=== PATIENT | male | born 1985 | race Caucasian/White ===

== ENCOUNTER 2021-01-28 00:11 | Emergency (ER) | payer OTHER, SELFPAY ==
--- NOTE | ~2021-01-28 | XR_ITS ---
EXAMINATION: XR chest 1V 01/28/2021 00:55 INDICATION: Shortness of breath and chest palpitations PROCEDURE: AP view of the chest COMPARISON: 09/11/2018 FINDINGS: The lungs are clear. The cardiomediastinal silhouette is within normal limits. There are no pleural effusions. There is no pneumothorax suspected. IMPRESSION: 1: NO ACUTE CARDIOPULMONARY DISEASE. Reviewed, dictated and finalized at location A.
--- NOTE | ~2021-01-28 | CT_ITS ---
EXAMINATION: CT BRAIN W/O DATE: 01/28/2021 00:50 INDICATION: Numbness and headache. Dizziness. TECHNIQUE: Computed tomography (CT) of the head was performed without intravenous contrast. The dose- length product was 681.00 mGy-cm. The mA was adjusted according to patient size. Iterative reconstruc tion technique was employed. COMPARISON: No prior studies for comparison. FINDINGS: Normal brain parenchymal volume for age. Normal reddy-white differentiation. No acute intrac ranial hemorrhage, infarction, mass or mass effect. No ventriculomegaly or midline shift. Midline sagittal images demonstrate a normal corpus callosum, c raniovertebral junction and sella turcica. Basilar cisterns are patent. There is mucosal thickening of the maxillary sinuses. There is mucous retention cyst right maxillary sinus. Mastoids are pneumatized. No depressed skull fracture. IMPRESSION: 1. No acute intracranial abnormality. 2: Mild sinus disease. Reviewed, dictated and finalized at location A.
[2021-01-28 00:13] VITALS: BP 147/100; PULSE 106; RESP 18; TEMP 36.6; O2SAT 95
--- NOTE | 2021-01-28 00:32 | ECG_ITS ---
Measurements Intervals [place] Rate: 91 P: 32 NH: 161 QRS: 6 QRSD: 88 T: 54 QT: 328 QTc: 404 Interpretive Statements SINUS RHYTHM POOR R WAVE PROGRESSION, CONSIDER ANTERIOR INFARCT BASELINE ARTIFACT- I, III, AVL ABNORMAL ECG Electronically Signed On 01-28-2021 7:34:32 CDT by Cristobal Paulino D.O.
[2021-01-28] MEDS: SODIUM CHLORIDE 0.9% IV 1,000 ML 999 ML IV CONT (00:42)
[2021-01-28] MEDS: diphenhydrAMINE HCl INJ 50 MG/ML VIAL IV PUSH (00:42)
[2021-01-28 01:06] LABS: Basophils Absolute Auto 0.1 K/mm3 (0.0-0.1); Basophils Percent Auto 0.7 % (0.2-1.2); Eosinophils Absolute Auto 0.2 K/mm3 (0-0.3); Eosinophils Percent Auto 1.4 % (0-4.4); Hematocrit 43.4 % (42.0-52.0); Hemoglobin 14.3 g/dL (14.0-18.0); Immature Granulocyte Absolute 0.08 K/mm3 (0.00-0.031); Immature Granulocyte Percent A 0.6 % (0-0.5); Lymphocytes Percent Auto 13.1 % (18.3-44.2); Mean Corpuscular HGB Conc 32.9 g/dl (32-36); Mean Corpuscular Hemoglobin 29.9 pg (26-34); Mean Corpuscular Volume 90.6 fl (80-100); Mean Platelet Volume 10.6 fl (7.4-10.4); Monocytes Absolute Auto 0.9 K/mm3 (0.1-0.6); Monocytes Percent Auto 6.1 % (2.6-8.5); Neutrophils Absolute Auto 11.3 K/mm3 (1.3-6.7); Neutrophils Percent Auto 78.1 % (45.5-73.1); Platelet Count Result 265 k/mm3 (150-375); Red Blood Count 4.79 M/mm3 (4.6-6.20); Red Cell Distribution Width 13.4 % (11.5-14.5); White Blood Count 14.5 K/mm3 (4.5-10.0)
[2021-01-28 01:17] LABS: INR 0.9; Partial Thromboplastin Time 29.4 SECONDS (22.3-36.8); Prothrombin Time 12.7 Seconds (11.1-14.7)
[2021-01-28 01:20] LABS: Alanine Aminotransferase 40 U/L (4-50); Albumin Level 4.1 g/dL (3.5-5.1); Alkaline Phosphatase 84 U/L (38-126); Anion Gap 4 mmol/L (8-16); Aspartate Amino Transferase 35 U/L (17-59); Bilirubin,Total 0.7 mg/dL (0.2-1.3); Blood Urea Nitrogen 16 mg/dL (9-20); Calcium 9.3 mg/dL (8.4-10.2); Carbon Dioxide 30 mmol/L (22-30); Chloride 102 mmol/L (98-107); Estimated CRCL calculation 148 ml/min; Estimated Glomerular Filt Rate > 60; Glucose 107 mg/dL (75-110); Magnesium 1.9 mg/dL (1.6-2.3); Potassium 4.2 mmol/L (3.4-5.0); Sodium 136 mmol/L (137-145)
--- NOTE | 2021-01-28 01:28 | ED.GENADULT ---
HPI - General Adult General Chief complaint: Neuro Symptoms/Deficit Stated complaint: over heated, numbness top of head/neck/back Time Seen by Provider: 01/28/21 00:24 History of Present Illness HPI narrative: Patient is a 35-year-old gentleman who presents the emergency department with chief complaint of numbness on his head and flushed feeling over his body. Patient reports that he started feeling some palpitations felt very hot had a headache that developed and felt some tingling on his head and down his left arm. Patient states that he decided to come to the emergency department for evaluation reports that the symptoms have improved somewhat but he still has a severe headache. Patient reports no focal neurological deficits. Related Data Home Medications Medication Instructions Recorded Confirmed No Home Medications 01/28/21 Allergies Allergy/AdvReac Type Severity Reaction Status Date / Time cefaclor Allergy Unknown Rash Verified 01/28/21 00:20 Review of Systems Review of Systems: Narrative: A 10 system review of systems was completed on the patient and is negative except for what is stated in the HPI. Nursing and ancillary documentation was reviewed. [facility] Social History Social History Gender identity (if verbalized by the patient): Male Sexual Orientation (if Verbalized by the Patient): Straight or Heterosexual Comments Patient denies past medical history Social history the patient reportedly smokes cigarettes Exam Narrative: Exam Narrative: GENERAL: Well-appearing, well-nourished, and in no acute distress. HEAD: Normocephalic, atraumatic. EYES: PERRLA and EOMI. ENT: Nares clear, no rhinorrhea or epistaxis. Mucous membranes moist. NECK: Supple. CHEST: Clear to auscultation. No respiratory distress. HEART: Regular rate and rhythm. No murmur heard. Normal peripheral pulses. ABDOMEN: Soft, nontender, nondistended, normal active bowel sounds. EXTREMITIES: Normal range of motion. No edema. SKIN: Warm, dry, no rash. NEURO: No focal deficits. Alert and oriented x3. PSYCH: Normal mood and affect. Course Course Emergency Course: EKG shows sinus rhythm rate of [address] elevation or ST depression Patient received hydration antiemetics and Benadryl the patient is feeling much better at this time Vital Signs Vital signs: Vital Signs Temperature 36.6 C 01/28/21 00:13 Pulse Rate 106 H 01/28/21 00:13 Respiratory Rate 18 01/28/21 00:13 Blood Pressure 147/100 H 01/28/21 00:13 Pulse Oximetry 95 01/28/21 00:13 Temperature 36.6 C 01/28/21 00:13 Pulse Rate 106 H 01/28/21 00:13 Respiratory Rate 18 01/28/21 00:13 Blood Pressure 147/100 H 01/28/21 00:13 Pulse Oximetry 95 01/28/21 00:13 Medical Decision Making Vital Signs Vital Signs: Vital Signs Temperature 36.6 C 01/28/21 00:13 Pulse Rate 106 H 01/28/21 00:13 Respiratory Rate 18 01/28/21 00:13 Blood Pressure 147/100 H 01/28/21 00:13 Pulse Oximetry 95 01/28/21 00:13 Temperature 36.6 C 01/28/21 00:13 Pulse Rate 106 H 01/28/21 00:13 Respiratory Rate 18 01/28/21 00:13 Blood Pressure 147/100 H 01/28/21 00:13 Pulse Oximetry 95 01/28/21 00:13 Lab Data Result diagrams: 01/28/21 00:44 01/28/21 00:43 Labs: Lab Results 01/28/21 01/28/21 01/28/21 Range/Units 00:43 00:43 00:44 WBC 14.5 H (4.5-10.0) K/mm3 RBC 4.79 (4.6-6.20) M/mm3 Hgb 14.3 (14.0-18.0) g/dL Hct 43.4 (42.0-52.0) % MCV 90.6 (80-100) fl MCH 29.9 (26-34) pg MCHC 32.9 (32-36) g/dl RDW 13.4 (11.5-14.5) % Plt Count 265 (150-375) k/mm3 MPV 10.6 H (7.4-10.4) fl Immature Gran % (Auto) 0.6 H (0-0.5) % Neut % (Auto) 78.1 H (45.5-73.1) % Lymph % (Auto) 13.1 L (18.3-44.2) % [place] % (Auto) 6.1 (2.6-8.5) % Eos % (Auto) 1.4 (0-4.4) % Baso % (Auto) 0.7 (0.2-1.2) % Lymph # (Auto) 1.90 (0.9-3.2) K/mm3 [place] # (Auto)
[2021-01-28 01:32] LABS: Troponin I < 0.012 ng/mL (0.000-0.034)
[2021-01-28 02:24] VITALS: BP 138/96; PULSE 84; RESP 16; TEMP 36.7; O2SAT 98
== END 2021-01-28 02:25 | disposition home or self-care (01) ==
PROVIDERS: Emergency Provider Emergency Medicine; PCP Nurse Practitioner Gerontology
DX: R51.9 Headache, unspecified (principal)
CPT/HCPCS: 36415; 70450; 71045; 80053; 83735; 84484; 85025; 85610; 85730; 93005; 96361; 96374; 99284; J1200; J7030

== ENCOUNTER 2022-02-25 08:07 | Emergency (ER) | payer OTHER, SELFPAY ==
--- NOTE | ~2022-02-25 | XR_ITS ---
EXAMINATION: XR knee RT 3V DATE: 02/25/2022 08:37 INDICATION: Right knee pain. Fall. TECHNIQUE: 3 views of right knee were obtained. COMPARISON: Right knee radiographs 02/25/2018 FINDINGS: There is lateral subluxation of patella. No fracture. There is mild tricompartmental osteoa rthritis. No knee joint effusion. IMPRESSION: 1. Mild right knee osteoarthritis. Reviewed, dictated and finalized at location B.
[2022-02-25 08:12] VITALS: BP 155/98; PULSE 91; RESP 18; TEMP 36.9; O2SAT 99
--- NOTE | 2022-02-25 08:59 | ED.GENADULT ---
HPI - General Adult General Chief complaint: Extremity Injury, Lower <SCOTT Bateman Last Filed: 02/25/22 14:50> Stated complaint: right knee injury <SCOTT Bateman Last Filed: 02/25/22 14:50> Time Seen by Provider: 02/25/22 08:56 <SCOTT Bateman Last Filed: 02/25/22 14:50> Source: patient <SCOTT Bateman Last Filed: 02/25/22 14:50> Mode of arrival: ambulatory <SOCTT Bateman Last Filed: 02/25/22 14:50> Limitations: no limitations <SCOTT Bateman Filed: 02/25/22 14:50> History of Present Illness HPI narrative: Patient is a 36 y/o male who presents to the ED with c/o R knee pain. Patient reports he fell around 730 am this morning. He states he slipped on water and fell with his R knee flexed behind him with his weight landing on his RLE. He complains of pain to his right knee since a fall, worst medially, and limited range of motion due to pain. He has been able to ambulate since the fall, but has been 'wobbling' and putting most of his weight on his LLE. Patient reports a history of R knee patellar dislocation in 2018 at which point he also sustained injury to his medial meniscus. He states he fell in a similar way at that time. He did not have surgery. He does not follow with an environmental specialist. No ankle pain, hip pain. No numbness, tingling, weakness, prodromal symptoms prior to the fall. <SCOTT Bateman Last Filed: 02/25/22 14:50> Related Data Home medications: Home Medications Medication Instructions Recorded Confirmed clonazepam 0.5 mg tablet 0.5 mg PO DAILY 03/09/21 03/09/21 escitalopram oxalate 10 mg tablet 10 mg PO DAILY 03/09/21 03/09/21 <SCOTT Bateman Last Filed: 02/25/22 14:50> Allergies/adverse reactions: Allergies Allergy/AdvReac Type Severity Reaction Status Date / Time cefaclor Allergy Unknown Rash Verified 03/09/21 13:01 <Lydia Farley PA-C - Last Filed: 02/25/22 14:50> Review of Systems Review of Systems: CONSTITUTIONAL: Denies fever. EYES: Denies visual changes. CARDIOVASCULAR: Denies chest pain. RESPIRATORY: Denies dyspnea. GASTROINTESTINAL: Denies abdominal pain, nausea, vomiting. MUSCULOSKELETAL: Reports R knee pain. Denies back pain, R hip/ankle pain. NEUROLOGIC: Denies headache, dizziness, lightheadedness, numbness, or weakness. <Lydia Farley PA-C - Last Filed: 02/25/22 14:50> All systems reviewed & are unremarkable except as noted in HPI and below <Lydia Farley PA-C - Last Filed: 02/25/22 14:50> PMFSH Past Medical History Medical History: Medical History Anxiety Frequent headaches <Lydia Farley PA-C - Last Filed: 02/25/22 14:50> Surgical History Surgical History: Surgical History (Updated 02/25/22 @ 14:40 by Lydia Farley PA-C) No pertinent past surgical history <Lydia Farley PA-C - Last Filed: 02/25/22 14:50> Family History Family History: Family History (Updated 03/09/21 @ 13:04 by Jaylyn Johnson [facility]) Unknown Diabetes mellitus History of stroke History of alcoholism <Lydia Farley PA-C - Last Filed: 02/25/22 14:50> Social History Social History: Social History Smoking packs per day: 0.5 Smoking cigarettes per day: 10.0 Smoking status: Current every day smoker Alcohol intake: never Gender identity (if verbalized by the patient): Male Sexual Orientation (if Verbalized by the Patient): Straight or Heterosexual <Lydia Farley PA-C - Last Filed: 02/25/22 14:50> Exam Narrative: GENERAL: Well appearing, obese, non-toxic, in no acute distress. HEAD: Normocephalic, atraumatic. NECK: Supple. No adenopathy, no masses. RESPIRATORY: Airway patent, respirations nonlabored. Clear to auscultation bilaterally, no rales, rhonchi, wheezing. CARDIOVASCULAR: Regular rate and rhythm
[2022-02-25] MEDS: KETOROLAC (*BKC) 60 MG/2 ML VIAL IM (09:31)
[2022-02-25 09:34] VITALS: BP 162/100; PULSE 70; RESP 15; O2SAT 100
[2022-02-25 10:10] VITALS: BP 142/85; PULSE 70; RESP 18; O2SAT 98
--- NOTE | 2022-02-25 10:30 | PC.NURSE ---
0918 Dr Burke eckert per Lydia Farley. He returned call at [phone]. [place]
== END 2022-02-25 10:15 | disposition home or self-care (01) ==
PROVIDERS: Emergency Provider Emergency Medicine; PCP Family Medicine
DX: S86.911A Strain of unspecified muscle(s) and tendon(s) at lower leg level, right leg, initial encounter (principal); S83.011A Lateral subluxation of right patella, initial encounter; F41.9 Anxiety disorder, unspecified; F17.210 Nicotine dependence, cigarettes, uncomplicated; M17.11 Unilateral primary osteoarthritis, right knee; W01.0XXA Fall on same level from slipping, tripping and stumbling without subsequent striking against object, initial encounter
CPT/HCPCS: 73562; 96372; 99283; J1885

== ENCOUNTER 2022-03-07 12:11 | Outpatient (CLI) | payer OTHER, SELFPAY ==
--- NOTE | ~2022-03-07 | CT_ITS ---
EXAMINATION: CT knee RT wo con DATE: 03/07/2022 12:48 INDICATION: Right knee osteoarthritis. TECHNIQUE: Computed tomography (CT) of the right knee was performed without intravenous contrast. Aut omated exposure control and iterative reconstruction technique were employed. The dose-length product was 403.43 mGy-cm. COMPARISON: Right knee radiographs 02/25/2022 FINDINGS: There is lateral subluxation of patella. No fracture. There is mild osteoarthritis of media l and lateral compartments and moderate osteoarthritis of patellofemoral compartment. There is a smal l knee joint effusion. There is a small Aparicio's cyst. IMPRESSION: 1. Moderate right knee osteoarthritis. 2. Small right knee joint effusion. 3. Small Aparicio's cyst. Reviewed, dictated and finalized at location B.
== END 2022-03-07 12:12 | disposition home or self-care (01) ==
PROVIDERS: PCP Family Medicine; Visit Provider Nurse Practitioner Adult Health
DX: M17.11 Unilateral primary osteoarthritis, right knee (principal); M25.461 Effusion, right knee; M71.21 Synovial cyst of popliteal space [Baker], right knee
CPT/HCPCS: 73700

== ENCOUNTER 2023-03-01 15:43 | Emergency (ER) | payer OTHER, SELFPAY ==
--- NOTE | 2023-03-01 15:48 | ED.URI ---
HPI - URI/Sore Throat General Chief Complaint: Upper Respiratory Infection Stated Complaint: Sore Throat,Congestion,Headache Time Seen by Provider: 03/01/23 15:48 Source: patient Mode of arrival: ambulatory Limitations: no limitations History of Present Illness HPI Narrative: patient is a 37-year-old male who presents with 3 days of sore throat, congestion, headache and ear pain. Patient also reports fever did not take Temperature. States he had diarrhea half the day yesterday. patient has been taking Tylenol and Mucinex with little to no relief. Patient denies any cough, shortness of breath, nausea, vomiting. Denies any sick contacts Related Data Home Medications Medication Instructions Recorded Confirmed clonazepam 0.5 mg tablet 0.5 mg PO DAILY 03/09/21 03/01/23 escitalopram oxalate 10 mg tablet 20 mg PO DAILY 03/09/21 03/01/23 Allergies Allergy/AdvReac Type Severity Reaction Status Date / Time cefaclor AdvReac Mild Rash Verified 03/01/23 16:00 Review of Systems Review of Systems: All systems reviewed & are unremarkable except as noted in HPI and below Constitutional: Constitutional: Denies chills, Denies fever(s), Denies malaise and Denies weakness Eyes: Eyes: Denies change in vision, Denies eye discharge and Denies irritation ENT: Reports otalgia, Reports headache(s), Reports nasal congestion, Denies nasal discharge, Denies sinus pain and Reports sore throat Cardiovascular: Cardiovascular: Denies chest pain, Denies edema, Denies palpitations and Denies dyspnea Respiratory: Respiratory: Denies cough and Denies dyspnea Gastrointestinal: Gastrointestinal: Denies abdominal pain, Denies diarrhea, Denies nausea and Denies vomiting Genitourinary: Genitourinary: Denies hematuria, Reports dysuria, Denies flank pain and Reports urinary frequency Musculoskeletal: Musculoskeletal: Denies back pain and Denies numbness Integumentary/Breasts: Skin/Breast: Denies pruritus and Denies rash Neurologic: Denies headache(s), Denies numbness and Denies weakness Psychiatric: Psychiatric: Reports no additional psychiatric complaints Endocrine: Endocrine: Denies palpitations Allergic/Immunologic: Allergic/Immunologic: Denies itchy eyes PMFSH Past Medical History Medical History (Updated 03/01/23 @ 16:09 by Perri N. Cosmas, ACCOUNT MANAGER [employer]IEF) Anxiety Frequent headaches Surgical History Surgical History (Updated 02/25/22 @ 14:40 by Lydia Oakes PA-C) No pertinent past surgical history Family History Family History (Updated 03/09/21 @ 13:04 by Jaylyn Johnson CMA) Unknown Diabetes mellitus History of stroke History of alcoholism Social History Social History Smoking packs per day: 0.5 Smoking cigarettes per day: 10.0 Smoking status: Current every day smoker Alcohol intake: never Gender identity (if verbalized by the patient): Male Sexual Orientation (if Verbalized by the Patient): Straight or Heterosexual Comments At time of signature, agree with nursing past medical, surgical, social and family history. There is no relevant family history pertinent to the presenting complaint. Exam Const: General: cooperative, healthy appearing, comfortable, no acute distress and well nourished Nutritional Appearance: well nourished Orientation/consciousness: patient oriented x3 Limitations: no limitations HENMT: Head: normocephalic and atraumatic Ears: hearing grossly normal bilaterally, external ears normal and TM's normal bilaterally Face/Nose/Sinus: Normal external nose present, Normal nares present, Normal nasal mucous membranes and turbinates present, normal facial exam and sinuses nontender Face and sinus: normal facial exam Mouth: Yes Normal oral and palatal mucosa present, Yes lip normal, Yes tongue normal, Yes Normal salivary glands and ducts present, Yes oropharynx normal and Yes moist mucous membranes Teeth and gingiva: dentitio
[2023-03-01 15:52] VITALS: BP 127/91; PULSE 68; RESP 20; TEMP 36; O2SAT 97
== END 2023-03-01 16:11 | disposition home or self-care (01) ==
PROVIDERS: Emergency Provider Nurse Practitioner Family; PCP Family Medicine
DX: J03.90 Acute tonsillitis, unspecified (principal); F17.210 Nicotine dependence, cigarettes, uncomplicated; F41.9 Anxiety disorder, unspecified
CPT/HCPCS: 87081; 87880; 99213; G0463

== ENCOUNTER 2024-05-08 12:15 | Outpatient (CLI) | payer OTHER, SELFPAY ==
--- NOTE | ~2024-05-08 | XR_ITS ---
3 VIEWS LUMBAR SPINE Ordering provider: [address], [employer]ER History: . Rt leg pain, LOW BACK AND NUMBNESS AND TINGLING . Comparison: None. FINDINGS: VERTEBRAL BODIES: No visible fracture or subluxation. Lumbarization of S1. DISK SPACES: Narrowing of the disc S1-S2 and L1-L2. SOFT TISSUES: Normal. IMPRESSION: No acute osseous abnormality lumbar spine. Multilevel degenerative disc disease. Reviewed, dictated and finalized at location A.
--- NOTE | ~2024-05-08 | XR_ITS ---
XR sacrum coccyx min 2V Ordering provider: [address], HEALTH ASSISTANT History: . Rt leg pain, NUMBNESS, TINGLING PAIN LOW BACK . Comparison: None. FINDINGS: BONES: No acute fracture or dislocation. JOINTS: The sacroiliac joint spaces are normal. SOFT TISSUES: Normal. IMPRESSION: No acute osseous abnormality sacrum. Reviewed, dictated and finalized at location A.
== END 2024-05-08 12:16 | disposition home or self-care (01) ==
PROVIDERS: PCP Family Medicine; Visit Provider Registered Nurse
DX: M79.661 Pain in right lower leg (principal); M54.50 Low back pain, unspecified; M51.36 Other intervertebral disc degeneration, lumbar region
CPT/HCPCS: 72100; 72220

== ENCOUNTER 2024-09-21 09:39 | Emergency (ER) | payer OTHER, SELFPAY ==
--- NOTE | 2024-09-21 09:44 | ED.GENADULT ---
HPI - General Adult General Chief complaint: Upper Respiratory Infection Stated complaint: fever Time Seen by Provider: 09/21/24 09:42 Source: patient Mode of arrival: ambulatory Limitations: no limitations History of Present Illness HPI narrative: 38-year-old male patient presents to the [facility] with complaints of a fever, body aches, chills, coughing and just overall not feeling well for the past 2 days. Patient states he has been taking ibuprofen and Tylenol for symptoms. Last took Tylenol about an hour prior to arrival. Patient states he has got some chest pain and shortness of breath with coughing. Some abdominal tenderness some body aches with coughing as well. Related Data Home Medications Medication Instructions Recorded Confirmed clonazepam 0.5 mg tablet 1 mg PO DAILY 03/09/21 09/21/24 escitalopram oxalate 10 mg tablet 20 mg PO DAILY 03/09/21 09/21/24 testosterone cypionate 200 mg/mL 0.5 mg subcut 2XW 09/21/24 09/21/24 intramuscular oil Allergies Allergy/AdvReac Type Severity Reaction Status Date / Time cefaclor AdvReac Mild Rash Verified 09/21/24 09:41 Review of Systems Review of Systems: CONSTITUTIONAL: Positive fever, body aches and chills, positive sweats. EYES: Denies visual changes, redness, or discharge. ENT: Denies rhinorrhea, congestion, sore throat, or otalgia. CARDIOVASCULAR: positive with coughing chest pain, denies palpitations, or edema. RESPIRATORY: positive cough or dyspnea. GASTROINTESTINAL: Denies abdominal pain, nausea, vomiting, or diarrhea. GENITOURINARY: Denies dysuria or hematuria. SKIN: Denies rash or itching. MUSCULOSKELETAL: Denies back pain, joint pain, or myalgia. NEUROLOGIC: Denies headache, numbness, or weakness. PSYCHIATRIC: Denies anxiety or depression. [facility] Past Medical History Medical History Anxiety Frequent headaches Surgical History Surgical History No pertinent past surgical history Family History Family History Unknown Diabetes mellitus History of stroke History of alcoholism Social History Social History Smoking packs per day: 0.5 Smoking cigarettes per day: 10.0 Smoking status: Current every day smoker Alcohol intake: never Gender identity (if verbalized by the patient): Male Sexual Orientation (if Verbalized by the Patient): Straight or Heterosexual Comments At the time of my signature I agree with nursing past medical history, surgical, social, and family history. There is no relevant family history pertinent to the presenting complaint. Exam Narrative: GENERAL: Well-appearing, well-nourished, and in no acute distress. HEAD: Normocephalic, atraumatic. EYES: PERRLA and EOMI. ENT: Nares with erythema edema noted bilaterally, clear rhinorrhea , no epistaxis. Mucous membranes moist. posterior pharynx no erythema, tonsillar enlargement, exudates or lesions. Bilateral TMs are clear no erythema or foreign bodies the canal. NECK: Supple. No lymphadenopathy CHEST: Patient has wheezing throughout the lungs on auscultation. No respiratory distress. HEART: Regular rate and rhythm. No murmur heard. Normal peripheral pulses. ABDOMEN: Soft, nontender, nondistended, normal active bowel sounds. EXTREMITIES: Normal range of motion. No edema. SKIN: Warm, dry, no rash. NEURO: No focal deficits. Alert and oriented x3. Course Course Level of Care: Express Care Visit Vital Signs Vital signs: Vital Signs Temperature 36.2 C L 09/21/24 09:50 Respiratory Rate 20 09/21/24 09:50 Blood Pressure 116/77 09/21/24 09:50 Pulse Oximetry 95 09/21/24 09:50 Oxygen Delivery Room Air 09/21/24 09:50 Temperature 36.2 C L 09/21/24 09:50 Respiratory Rate 20 09/21/24 09:50 Blood Pressure 116/77 09/21/24 09:50 Pulse Oximetry 95 09/21/24 09:50 Oxygen Delivery Room Air 09/21/24 09:50 vital signs reviewed. Medical Decision Making MDM Narrative Medical decision making narrative: discussed with patient he is negative today for COVID and influenza as per the rapid test. Discussed with patient he does have a virus and will not need to let it run its course. Discussed with patient that due to his wheezing and will discharge him home with some oral steroids and an albuterol inhaler along with some Tessalon Perles to help with the coughing. Discussed with patient if the fever lasts longer than 5 days or his symptoms worsen he would need to go the ER for further evaluation treatment Differential Diagnosis Differential Diagnosis: Differential diagnosis: Allergic rhinitis, chronic sinusitis, tonsillitis, acute sinusitis, infectious mononucleosis, seasonal influenza, pertussis, diphtheria, meningococcal disease, viral syndrome, viral bronchitis, RSV, COVID-19 Vital Signs Vital Signs: Vital Signs Temperature 36.2 C L 09/21/24 09:50 Respiratory Rate 20 09/21/24 09:50 Blood Pressure 116/77 09/21/24 09:50 Pulse Oximetry 95 09/21/24 09:50 Oxygen Delivery Room Air 09/21/24 09:50 Temperature 36.2 C L 09/21/24 09:50 Respiratory Rate 20 09/21/24 09:50 Blood Pressure 116/77 09/21/24 09:50 Pulse Oximetry 95 09/21/24 09:50 Oxygen Delivery Room Air 09/21/24 09:50 Critical Care Time Critical Care Time Critical Care Time: No Discharge Plan Discharge Clinical Impression: Viral URI with cough Patient Disposition: Home, Self-Care Condition: Stable Instructions: Antibiotic Form, Upper Respiratory Infection (ED), Viral Syndrome (ED) Additional Instructions: Viral illness may last between 7-12days; antibiotic is NOT recommended at this time. Recommend antihistamine such as Benadryl at night time and Claritin/Zyrtec/Michelle during the day Cough syrup may cause drowsiness; avoid driving or take it at night time. Use inhaler as needed for cough, wheezing, shortness of breath or chest tightness. Also, recommend symptomatic treatment includes: rest, fluids, and increase humidity of the air at home. Recommend Acetaminophen or nonsteroidal anti-inflammatory agents (NSAIDs) as directed in the bottle to reduce fever and/pain/headache. Avoid smoking/second-hand smoke. Limit visits to areas with large crowds. Please schedule a follow-up visit with your personal physician for further evaluation and treatment within 3-5days. Including recheck and discussion of your blood pressure. If your symptoms persist, change or worsen significantly before you can contact your personal physician then please, without delay, go to the emergency department for further evaluation. Prescriptions: New benzonatate 200 mg capsule 200 mg PO TID PRN (Reason: cough) 10 Days Qty: 30 0RF prednisone 20 mg tablet 40 mg PO DAILY 5 Days Qty: 10 0RF albuterol sulfate [Ventolin HFA] 90 mcg/actuation HFA aerosol inhaler 2 puff INHALATION .Q4 hours PRN (Reason: cough) Qty: 18 0RF No Action testosterone cypionate 200 mg/mL oil 0.5 mg subcut 2XW escitalopram oxalate 10 mg tablet 20 mg PO DAILY clonazepam 0.5 mg tablet 1 mg PO DAILY Follow-up/Referrals: Howie Diaz MD [Primary Care Provider] - Stand Alone Forms: Work/School Release IP Time of Disposition: 10:11
[2024-09-21 09:50] VITALS: BP 116/77; RESP 20; TEMP 36.2; O2SAT 95
[2024-09-23 10:03] LABS: EDCOVIDSCREEN Negative (Negative); EDINFLUASCREEN Negative (Negative); EDINFLUBSCREEN Negative (Negative)
== END 2024-09-21 10:13 | disposition home or self-care (01) ==
PROVIDERS: Emergency Provider Nurse Practitioner Family; PCP Family Medicine
DX: J06.9 Acute upper respiratory infection, unspecified (principal); R05.9 Cough, unspecified; Z20.822 Contact with and (suspected) exposure to COVID-19; F17.210 Nicotine dependence, cigarettes, uncomplicated; F41.9 Anxiety disorder, unspecified
CPT/HCPCS: 87426; 87635; 87804; 99213; G0463

== ENCOUNTER 2025-10-22 08:43 | Emergency (ER) | payer OTHER, SELFPAY ==
[2025-10-22 08:57] VITALS: BP 139/89; PULSE 89; RESP 18; TEMP 36.4; O2SAT 97
--- OUTSIDE RECORDS SUMMARY | 2025-10-22 09:09 | XMS_ITS | Clinical Summary ---
Author Organization [facility] Definition 6 Address [address] [place] [address] Care Team Providers Care Building Contractor Name Role Phone Howie Diaz MD Primary Care Provider [phone] Source Comments [facility] Definition 6,non-owned Affiliates and Associated Physician Practices is amultiple site organization consisting of ambulatory clinics and hospital sitesin [place], [place], [place] and [place]. This disclosure is being madepursuant to the Care Everywhere program and may not contain all information available regarding this patient. Last updated 18.[facility] Definition 6 Allergies No known active allergies Medications * Be aware that medications may not be up to date on this document. Alwaysverify current medications with the patient. No known medications Active Problems Problem Noted Date Diagnosed Date Current smoker 03/18/2019 Chest pain in adult 03/18/2019 BMI 45.0-49.9, adult 03/18/2019 Immunizations Immunization Administration Dates Next Due INFLUENZA VACCINE 09/04/2015 Family History Medical History Relation Name Comments CVA Father Renal Disease Father Relation Name Status Comments Father Alive Mother Alive Social History Tobacco Use Types Packs/Day Years Used Date Smoking Tobacco: Every Day Cigarettes Smokeless Tobacco: Never Tobacco Cessation:Counseling Given: No Alcohol Use Standard Drinks/Week Comments Yes 3 (1 standard drink = 0.6 oz pur e alcohol) Sex and Gender Information Value Date Recorded Sex Assigned at Not on file Legal Sex Male 5:37 AM [employer] Gender Identity Not on file Sexual Orientation Not on file Last Filed Vital Signs Vital Sign Reading Time Taken Comments Blood Pressure 130/84 03/18/2019 9:29 AM CDT Pulse 74 03/18/2019 9:29 AM CDT Temperature 36.8 C (98.3 F) 11/27/2015 1:40 PM [employer] Respiratory Rate - - Oxygen Saturation 96% 03/18/2019 9:29 AM CDT Inhaled Oxygen Concentration - - Weight 161 kg (355 lb) 03/18/2019 9:29 AM CDT Height 182.9 cm (6') 03/18/2019 9:29 AM CDT Body Mass Index 48.15 03/18/2019 9:29 AM CDT Plan of Treatment Health Maintenance Due Date Last Done Comments LIPID TESTING 1984 HIV SCREENING 1999 HEPATITIS C SCREENING 09/18/2002 DTAP/TDAP/TD VACCINES (1 - Tdap) 2003 HEPATITIS B VACCINE (1 of 3 - 19+ 3-dose series) 2003 PNEUMOCOCCAL VACCINE (1 of 2 - PCV) 2003 HPV VACCINE (1 - 3-dose SCDM series) 2011 DEPRESSION SCREENING 11/06/2024 COVID-19 VACCINE (1 - 2024-2 6 season) 2025 INFLUENZA VACCINE (#1) 2025 09/04/2015 ZOSTER VACCINE (1 of 2) 2034 HIB VACCINE Aged Out No longer eligi ble based on patient's age to complete this topic MENINGOCOCCAL (Group B) VACC INE SHARED DECISION-MAKING Aged Out No longer eligibl e based on patient's age to complete this topic MENINGOCOCCAL GROUPS A/C/Y/W VACCINE Aged Out No longer eligible b ased on patient's age to complete this topic [place] [address] [place] [address] [facility] Care Teams Building Contractor Relationship Specialty Start Date End Date Howie Diaz MD [address] [place] [address] PCP - General 10/10/18
--- NOTE | 2025-10-22 09:15 | ED.URI ---
HPI - URI/Sore Throat General Chief Complaint: Upper Respiratory Infection Stated Complaint: sore throat Time Seen by Provider: 10/22/25 09:00 Source: patient and RN notes reviewed Mode of arrival: ambulatory Limitations: no limitations History of Present Illness HPI Narrative: 40-year-old male patient presents Express Care complaining of sore throat for 3 days. Patient also reports having fevers and swollen lymph nodes. Patient denies any other upper respiratory symptoms, chest pain, breathing problems, nausea vomiting, diarrhea, difficulty swallowing, or any other symptoms. Patient denies any significant past medical problems. Related Data Home Medications ?Medication ?Instructions ?Recorded ?Confirmed ?Last Taken ?Type clonazepam 0.5 mg tablet 1 mg PO DAILY 03/09/21 09/21/24 Unknown History escitalopram oxalate 10 mg tablet 20 mg PO DAILY 03/09/21 09/21/24 Unknown History testosterone cypionate 200 mg/mL 0.5 mg subcut 2XW 09/21/24 09/21/24 Unknown History intramuscular oil Allergies Allergy/AdvReac Type Severity Reaction Status Date / Time cefaclor AdvReac Mild Rash Verified 10/22/25 08:55 Review of Systems Review of Systems: CONSTITUTIONAL: Denies delete chills, or sweats. Positive for fever EYES: Denies visual changes, redness, or discharge. ENT: Denies rhinorrhea, congestion, dysphagia, or otalgia. Positive for sore throat CARDIOVASCULAR: Denies chest pain, palpitations, or edema. RESPIRATORY: Denies cough or dyspnea. GASTROINTESTINAL: Denies abdominal pain, nausea, vomiting, or diarrhea. GENITOURINARY: Denies dysuria or hematuria. SKIN: Denies rash or itching. MUSCULOSKELETAL: Denies back pain, joint pain, or myalgia. NEUROLOGIC: Denies headache, numbness, or weakness. PSYCHIATRIC: Denies anxiety or depression. All other systems reviewed are negative, except as documented in HPI. [facility] Past Medical History Medical History Frequent headaches Anxiety Surgical History Surgical History No pertinent past surgical history Family History Family History Unknown Diabetes mellitus History of stroke History of alcoholism Social History Social History Smoking packs per day: 0.5 Smoking cigarettes per day: 10.0 Smoking status: Current every day smoker Alcohol intake: never Gender identity (if verbalized by the patient): Male Sexual Orientation (if Verbalized by the Patient): Straight or Heterosexual Comments At the time of my signature, I reviewed and agree with the nursing past medical, surgical, social, and family history. There is no relevant family history pertinent to the patient complaint. Exam Narrative: GENERAL: This is a well-nourished, well-developed adult, in no apparent distress. They are non ill-appearing, nontoxic appearing. HEAD: normocephalic, atraumatic. EYES: Sclera clear/white. Conjunctiva normal. Vision is grossly intact. Extraocular movements intact EARS: External ears normal, auditory canals clear and without drainage, TMs normal without perforation. Hearing grossly intact. NOSE: External nose normal with no obvious nasal discharge, nasal turbinates without redness, no rhinorrhea. THROAT: Mucous membranes moist, posterior pharynx erythematous red and patchy. Uvula midline. NECK: Neck supple, tender cervical lymphadenopathy, no masses or thyromegaly. CARDIOVASCULAR: Regular rate and rhythm without murmurs, gallops, or rubs. RESPIRATORY: Clear to auscultation. Breath sounds equal bilaterally. No wheezes, rales, or rhonchi. SKIN: warm, Dry, intact with no suspicious lesions or rash, good texture and turgor. NEURO: awake, alert, and oriented to person, place and time. There were no obvious focal neurologic abnormalities. EXTREMITIES: No joint tenderness, effusion, or edema noted. BACK: Nontender without deformity. Course Course Level of Care: Express Care Visit Vital Signs Vital signs: Vital Signs Temperature 97.5 F L 10/22/25 08:57 Pulse Rate 89 10/22/25 08:57 Respiratory Rate 18 10/22/25 08:57 Blood Pressure 139/89 10/22/25 08:57 Pulse Oximetry 97 10/22/25 08:57 Oxygen Delivery Room Air 10/22/25 08:57 Temperature 97.5 F L 10/22/25 08:57 Pulse Rate 89 10/22/25 08:57 Respiratory Rate 18 10/22/25 08:57 Blood Pressure 139/89 10/22/25 08:57 Pulse Oximetry 97 10/22/25 08:57 Oxygen Delivery Room Air 10/22/25 08:57 [facility] Narrative Medical decision making narrative: Rapid strep is positive. Will treat with amoxicillin. Patient has allergy to cefaclor however he has had amoxicillin the past without issues. Discussed physical exam findings. Advised supportive measures and signs/symptoms to go to the ER. Pt is appropriate for outpt treatment and f/u. Differential Diagnosis Differential Diagnosis: Differential diagnostic considerations for upper respiratory infection include upper respiratory infection, croup, otitis media, sinusitis, viral infection, bronchitis, influenza, pharyngitis, strep, uvulitis. Medical Records I have reviewed the following patient records and this information was taken into consideration when formulating the assessment and plan.: previous clinic visits Lab Data [facility] Lab Attestation statement: I personally reviewed the patient's lab results. Critical Care Time Critical Care Time Critical Care Time: No Discharge Plan Discharge Clinical Impression: Pharyngitis Qualifiers: Pharyngitis/tonsillitis etiology: streptococcus Qualified Code(s): J02.0 - Streptococcal pharyngitis Patient Disposition: Home Condition: Stable Instructions: Antibiotic Form, Strep Throat (ED) Additional Instructions: You tested positive for strep throat. ?Please take the amoxicillin as prescribed until gone. ?You will be contagious for 24 hours after starting the medication. ?After 24 hours on antibiotics throw tooth brush away and start using a new one. Wash your sheets and cup/water bottle that is used daily. Do not share drinks. Take Tylenol or Ibuprofen for pain as needed for pain or fevers. Rest and stay hydrated. ?Follow up with your PCP in 3 days if symptoms are not improving. ?Go to the ER immediately if you develop worsening symptoms such as shortness of breath, difficulty swallowing, chest pain, vomiting, or any serious concerns. Patient Language: Telugu Prescriptions: New amoxicillin 500 mg tablet 500 mg PO Q12H 10 Days Qty: 20 0RF No Action testosterone cypionate 200 mg/mL oil 0.5 mg subcut 2XW benzonatate 200 mg capsule 200 mg PO TID PRN (Reason: cough) 10 Days Qty: 30 0RF prednisone 20 mg tablet 40 mg PO DAILY 5 Days Qty: 10 0RF albuterol sulfate [Ventolin HFA] 90 mcg/actuation HFA aerosol inhaler 2 puff INHALATION .Q4 hours PRN (Reason: cough) Qty: 18 0RF escitalopram oxalate 10 mg tablet 20 mg PO DAILY clonazepam 0.5 mg tablet 1 mg PO DAILY Follow-up/Referrals: Howie Diaz MD [Primary Care Provider, Family Practice] Stand Alone Forms: Work/School Release IP Time of Disposition: 09:14
[2025-10-22 10:01] LABS: EDSTREPNEGPOS1 Positive (Negative)
== END 2025-10-22 09:19 | disposition home or self-care (01) ==
PROVIDERS: PCP Family Medicine
DX: J02.0 Streptococcal pharyngitis (principal); F17.210 Nicotine dependence, cigarettes, uncomplicated; F41.9 Anxiety disorder, unspecified
CPT/HCPCS: 87880; 99213; G0463